=== PATIENT | female | born 1955 | race Caucasian/White ===

== ENCOUNTER 2018-03-16 11:11 | Emergency (ER) | payer OTHER ==
[~2018-03-16] VITALS: Ht 162.6 cm; Wt 48.4 kg
[2018-03-16 11:14] VITALS: BP 123/78
[2018-03-16 11:45] LABS: BASOPHILS # (AUTO) 0.05 x10^3/uL (0-0.1); BASOPHILS % (AUTO) 1 % (0-1); EOSINOPHILS # (AUTO) 0.05 x10^3/uL (0-0.4); EOSINOPHILS % (AUTO) 1 % (1-7); LYMPHOCYTES # (AUTO) 1.85 x10^3/uL (1-3.4); LYMPHOCYTES % (AUTO) 35 % (22-44); MD NO; MEAN CORPUSCULAR HEMOGLOBIN 32.7 pg (27.0-34.8); MEAN CORPUSCULAR HGB CONC 33.8 g/dL (32.4-35.8); MEAN CORPUSCULAR VOLUME 96.7 fL (80-100); MEAN PLATELET VOLUME 8.4 fL (7.4-10.4); MONOCYTES # (AUTO) 0.32 x10^3/uL (0.2-0.8); MONOCYTES % (AUTO) 6 % (2-9); NEUTROPHILS # (AUTO) 3.02 x10^3/uL (1.8-6.8); NEUTROPHILS % (AUTO) 57 % (42-75); PLATELET COUNT 241 x10^3/uL (130-400); RED BLOOD COUNT 4.23 x10^6/uL (3.82-5.3); RED CELL DISTRIBUTION WIDTH 13.7 % (9.6-15.2)
[2018-03-16 12:03] LABS: ALANINE AMINOTRANSFERASE 20 U/L (12-78); ALBUMIN 3.9 g/dL (3.4-5.0); ANION GAP 7 mmol/L (5-15); CALCIUM 9.1 mg/dL (8.5-10.1); CHLORIDE 108 mmol/L (98-107); CREATININE 0.86 mg/dL (0.55-1.02)
[2018-03-16 12:06] LABS: ALKALINE PHOSPHATASE 75 U/L (45-117); BILIRUBIN,TOTAL 0.6 mg/dL (0.2-1.0); TOTAL PROTEIN 7.6 g/dL (6.4-8.2)
[2018-03-16 13:43] LABS: MICROSCOPIC NOT IND
[2018-03-16 13:46] LABS: CULTURE INDICATED? NO
== END 2018-03-16 14:09 | disposition home or self-care (01) ==
LOC: ED 13:26
DX: G89.29 Other chronic pain (principal); R10.2 Pelvic and perineal pain; R88.8 Abnormal findings in other body fluids and substances; E78.5 Hyperlipidemia, unspecified
CPT/HCPCS: 36415; 76830; 80053; 81003; 83690; 85025; 99285